=== PATIENT | female | born 1975 ===

== ENCOUNTER 2018-05-26 16:34 | Emergency (ER) | payer MEDICAID, OTHER ==
[2018-05-26 16:43] VITALS: TEMP 98.4
[2018-05-26] MEDS ORDERED: Sodium Chloride 0.9% 1,000 ML IV STA (16:55)
[2018-05-26 17:21] LABS: URINE APPEARANCE CLEAR (CLEAR); URINE BILIRUBIN NEGATIVE (NEGATIVE); URINE BLOOD SMALL (NEGATIVE); URINE COLOR YELLOW (YELLOW); URINE GLUCOSE (UA) NEGATIVE (NEGATIVE); URINE LEUKOCYTE ESTERASE NEGATIVE Leu/uL (NEGATIVE); URINE PROTEIN NEGATIVE mg/dL (<30 mg/dL); URINE UROBILINOGEN 0.2 E.U./dL (<1 E.U./dL)
[2018-05-26 17:25] LABS: BASO # 0.01 K/mm3 (0.0-2.0); BASO % 0.2 % (0.0-3.0); EOS # 0.1 (0.0-0.7); EOS % 1.5 % (1.5-5.0); GRAN # 4.6 (1.4-6.5); GRAN % 69.8 % (50.0-68.0); HEMOGLOBIN 13.6 g/dL (12.0-16.0); LYMPH # 1.5 (1.2-3.4); MEAN CELL VOLUME 97.1 fl (80.0-105.0); MEAN PLATELET VOLUME 9.9 fl (7.0-11.0); MONO # 0.4 (0.1-0.6); MONO % 6.5 % (1.0-6.0); RBC 4.12 10^6/uL (3.5-6.1); RED CELL DISTRIBUTION WIDTH 12.8 % (11.5-14.5); WHITE BLOOD COUNT 6.6 10^3/uL (4.5-11.0)
--- NOTE | 2018-05-26 17:31 | ED PDOC ---
Arrival/HPI - General Chief Complaint: Back Pain Time Seen by Provider: 05/26/18 16:37 Historian: Patient - History of Present Illness Narrative History of Present Illness (Text): 05/26/18 17:31 42yo female with pmhx of Asthma and anxiety who present with complaint of lower back pain x 5days. She describes pain as stabbing and intermittent. States she was taking Tylenol and Ibuprofen at home with temporary relieve. Reports that pain is with movement. Also complaint of dizziness x 3days. Notes that the dizziness improved today. Describes dizziness as spinning sensation. She denies focal weakness, urinary/fecal incontinence, fever, chills, abdominal pain, tinnitus, URI symptoms, chest pain, SOB, saddle anesthesia, any other complaint. Past Medical History - Infectious Disease Hx of Infectious Diseases: None - Cardiac Hx Cardiac Disorders: Yes Hx Hypotension: Yes - Pulmonary Hx Asthma: Yes Hx Bronchitis: Yes - Neurological Hx Neurological Disorder: No - HEENT Hx HEENT Disorder: No - Renal Hx Renal Disorder: No - Endocrine/Metabolic Hx Endocrine Disorders: No - Hematological/Oncological Hx Blood Disorders: No - Integumentary Hx Dermatological Disorder: No - Musculoskeletal/Rheumatological Hx Arthritis: Yes - Gastrointestinal Hx Gastritis: Yes - Genitourinary/Gynecological Hx Genitourinary Disorders: Yes (OVARIAN CYST FIBROID UTERUS) - Psychiatric Hx Anxiety: Yes (WHEN AWAKEENED FROM ANESTHESIA) Hx Substance Use: No - Surgical History Hx Hysterectomy: Yes - Anesthesia Hx Anesthesia: Yes Hx Anesthesia Reactions: Yes ( N/V, LOW B/P, PANIC ATTACKS) Hx Malignant Hyperthermia: No - Suicidal Assessment Feels Threatened In Home Enviroment: No Family/Social History - Physician Review Nursing Documentation Reviewed: Yes Family/Social History: Unknown Family HX Smoking Status: Light Smoker < 10 Cigarettes Daily Hx Alcohol Use: Yes Hx Substance Use: No Allergies/Home Meds Allergies/Adverse Reactions: Allergies tramadol Allergy (Severe, Verified 02/15/18 16:09) ANAPHYLAXIS Review of Systems - Physician Review All systems were reviewed & negative as marked: Yes - Review of Systems Constitutional: Normal Eyes: Normal ENT: Normal Respiratory: Normal Cardiovascular: Normal Gastrointestinal: Normal Genitourinary Female: Normal Musculoskeletal: Back Pain Skin: Normal Neurological: Dizziness. absent: Focal Weakness Endocrine: Normal Hemo/Lymphatic: Normal Psychiatric: Normal Physical Exam Vital Signs Reviewed: Yes Vital Signs Temp Pulse Resp BP Pulse Ox 12/08/18 16:34 98.4 F 85 18 111/71 99 Temperature: Afebrile Blood Pressure: Normal Pulse: Regular Respiratory Rate: Normal Appearance: Positive for: Well-Appearing, Non-Toxic, Comfortable Pain Distress: None Mental Status: Positive for: Alert and Oriented X 3 - Systems Exam Head: Present: Atraumatic, Normocephalic Pupils: Present: PERRL Extroacular Muscles: Present: EOMI Conjunctiva: Present: Normal Mouth: Present: Moist Mucous Membranes Neck: Present: Normal Range of Motion Respiratory/Chest: Present: Clear to Auscultation, Good Air Exchange. No: Respiratory Distress, Accessory Muscle Use Cardiovascular: Present: Regular Rate and Rhythm, Normal S1, S2. No: Murmurs Abdomen: No: Tenderness, Distention, Peritoneal Signs Back: Present: Paraspinal Tenderness (Diffuse paralumbar tenderness). No: Midline Tenderness, Pain with Leg Raise Upper Extremity: Present: Normal Inspection. No: Cyanosis, Edema Lower Extremity: Present: Normal Inspection. No: Edema Neurological: Present: GCS=15, CN II-XII Intact, Speech Normal, Motor Func Grossly Intact, Normal Sensory Function, Normal Cerebellar Funct, Gait Normal, Memory Normal, Normal 2Pt Descrimination, Other (No focal neurological deficit) Skin: Present: Warm, Dry, Normal Color. No: Rashes Psychiatric: Present: Alert, Oriented x 3, Normal Insight, Normal Concentration Medical Decision Making ED Course and Treatment: 05/26/18 19:06 PT in ED for stated history. She was ambulatory in ED and neurologically stable. LS Labs 1L NS, Meclizine, Toradol UA EKG Labs was unremarkable. LS xray - No acute finding EKG NSR @ 77bpm On re evaluation pt reports improvement of her symptoms Result was DW the pt and she was referred to ortho/[facility] ED for any new or worsening symptoms - Lab Interpretations Lab Results: 05/26/18 17:15 Lab Results 05/26/18 17:15: WBC 6.6, RBC 4.12, Hgb 13.6, Hct 40.0, MCV 97.1, MCH 33.0, MCHC 34.0, RDW 12.8, Plt Count 204, MPV 9.9, Gran % 69.8 H, Lymph % (Auto) 22.0, [place] % (Auto) 6.5 H, Eos % (Auto) 1.5, Baso % (Auto) 0.2, Gran # 4.60, Lymph # (Auto) 1.5, [place] # (Auto) 0.4, Eos # (Auto) 0.1, Baso # (Auto) 0.01 05/26/18 16:54: Urine Color Yellow, Urine Appearance Clear, Urine pH 6.0, Ur Specific [place] >= 1.030, Urine Protein Negative, Urine Glucose (UA) Negative, Urine Ketones Trace H, Urine Blood Small H, Urine Nitrate Negative, Urine Bi lirubin Negative, Urine Urobilinogen 0.2, Ur Leukocyte Esterase Negative, Urine RBC Pending, Urine WBC Pending - RAD Interpretation Radiology Orders: 05/26/18 16:50 LS SPINE WITH OBL > 18 YRS OLD [RAD] Stat - Medication Orders Current Medication Orders: Sodium Chloride (Sodium Chloride 0.9%) 1,000 mls @ 999 mls/hr IV .Q1H1M STA Stop: 05/26/18 17:55 Last Admin: 05/26/18 17:22 Dose: 999 mls/hr eMAR Start Stop Document 05/26/18 17:22 OCS (Rec: 05/26/18 17:23 [facility]-ER-20) Intravenous Solution Start Date 05/26/18 Start Time 17:23 End Date 05/26/18 End time 18:24 Total Infusion Time 61 Discontinued Medications Ketorolac Tromethamine (Toradol) 15 mg IVP STAT STA Stop: 05/26/18 17:17 Last Admin: 05/26/18 17:23 Dose: 15 mg MAR Pain Assessment Document 05/26/18 17:23 OCS (Rec: 05/26/18 17:23 [facility]-ER-20) Pain Reassessment Is this a pain reassessment? Yes Sleep Is patient sleeping during reassessment? No Presence of Pain Presence of Pain Yes Pain Scale Used Protocol: PSCALES Pain Scale Used Numeric Location Upper or Lower Lower Pain Location Body Site Back Description Description Constant Intensity of Pain at present 10 Pain Behavior Facial Grimacing Aggravating Factors ADL's IVP Administration Document 05/26/18 17:23 OCS (Rec: 05/26/18 17:23 OCS [facility] [place]-ER-20) Charges for Administration # of IVP Administrations 1 Disposition/Present on Arrival - Present on Arrival Any Indicators Present on Arrival: No History of DVT/PE: No History of Uncontrolled Diabetes: No Urinary Catheter: No History of Decub. Ulcer: No History Surgical Site Infection Following: None - Disposition Have Diagnosis and Disposition been Completed?: Yes Diagnosis: Back pain, Dizziness Disposition: HOME/ ROUTINE Disposition Time: 18:30 Patient Plan: Discharge Patient Problems: Current Active Problems Problem Status Onset Back pain Acute Dizziness Acute Condition: STABLE Discharge Instructions (ExitCare): Dizziness, Nonvertigo, (DC) Additional Instructions: Follow up with your Doctor/Orthopedist/Neurologist Return to ED for any new symptoms Prescriptions: Cyclobenzaprine [Cyclobenzaprine HCl] 10 mg PO BID #10 tab RX: Ibuprofen [Motrin Tab] 600 mg PO Q6 #20 tab RX: Meclizine [Meclizine*] 25 mg PO Q6 #12 tab Referrals: Justino Mohr III, MD [Medical Doctor] - Follow up with primary Jose Elias Samayoa DO [Primary Care Provider] - Follow up with primary Chau Richye MD [Staff Provider] - Follow up with primary Forms: [employer] (Hungarian), WORK NOTE
[2018-05-26 17:33] LABS: URINE WBC NEGATIVE /hpf (0-6)
[2018-05-26 17:34] LABS: INR 0.96; PARTIAL THROMBOPLASTIN TIME 31.1 Seconds (25.1-36.5); PROTHROMBIN TIME 10.9 SECONDS (9.4-12.5)
[2018-05-26 17:35] LABS: ALB/GLOB RATIO 1.5 (1.1-1.8); ALBUMIN 4.2 g/dL (3.0-4.8); ALT/SGPT 19 U/L (7-56); AST/SGOT 24 U/L (14-36); BLOOD UREA NITROGEN 14 mg/dL (7-21); GFR NON-AFRICAN AMERICAN > 60
[2018-05-26 17:53] LABS: TROPONIN I < 0.01 ng/mL
[2018-05-26 18:00] LABS: BARBITURATES, UR NEGATIVE (NEGATIVE); BENZODIAZEPINES, UR NEGATIVE (NEGATIVE); OPIATES, UR NEGATIVE (NEGATIVE); PHENCYCLIDINE, UR NEGATIVE (NEGATIVE)
[2018-05-26 18:41] VITALS: O2SAT 100
[2018-05-26 19:03] VITALS: BP 102/62; PULSE 67; RESP 17
--- NOTE | 2018-05-27 08:41 | CARD ---
APPROVED REPORT Date of service: 05/26/2018 EKG Measurement Heart [id number] <Conclusion> Normal sinus rhythm Normal ECG
--- NOTE | 2018-05-27 09:54 | RAD ---
Date of service: 05/26/2018 PROCEDURE: Radiographs of the Lumbar Spine. HISTORY: back pain COMPARISON: No prior. FINDINGS: BONES: Normal alignment. No listhesis. No fracture. DISC SPACES: Unremarkable. OTHER FINDINGS: None. IMPRESSION: Unremarkable radiographs of the lumbar spine.
== END 2018-05-26 18:55 | disposition home or self-care (01) ==
LOC: ED 16:34
DX: M54.9 Dorsalgia, unspecified (principal); R42 Dizziness and giddiness; J45.909 Unspecified asthma, uncomplicated; F17.210 Nicotine dependence, cigarettes, uncomplicated
CPT/HCPCS: 72110; 80053; 80324; 80345; 80346; 80349; 80353; 80358; 80361; 81001; 82550; 83615; 83735; 83992; 84484; 85025; 85610; 85730; 93005; 96361; 96374; 99283; J1885; J7030

== ENCOUNTER 2018-08-07 14:25 | Emergency (ER) | payer OTHER ==
[2018-08-07 14:41] VITALS: RESP 18; BMI 24.7
--- NOTE | 2018-08-07 14:59 | ED PDOC ---
Arrival/HPI - General Chief Complaint: Chest Pain Time Seen by Provider: 08/07/18 14:36 Historian: Patient - History of Present Illness Narrative History of Present Illness (Text): 08/07/18 14:36 Nicolette Rangel is a 42 year old female, with past medical history of asthma, anxiety, and chest pain, who presents to the Emergency department complaining of chest pain and shortness of breath secondary to asthma since last night. Patient states her inhaler does not improve symptoms. Patient denies fevers, headache, dizziness, dyspnea on exertion, abdominal pain, nausea, vomiting, diarrhea, back pain, neck pain, or any other complaint. Time/Duration: 24 hours Symptom Onset: Sudden Symptom Course: Unchanged Activities at Onset: Light Context: Home Past Medical History - Provider Review Nursing Documentation Reviewed: Yes - Infectious Disease Hx of Infectious Diseases: None - Reproductive Currently : Unknown - Cardiac Hx Cardiac Disorders: Yes Hx Hypotension: Yes - Pulmonary Hx Respiratory Disorders: Yes Hx Asthma: Yes Hx Bronchitis: Yes - Neurological Hx Neurological Disorder: No - HEENT Hx HEENT Disorder: No - Renal Hx Renal Disorder: No - Endocrine/Metabolic Hx Endocrine Disorders: No - Hematological/Oncological Hx Blood Disorders: No - Integumentary Hx Dermatological Disorder: No - Musculoskeletal/Rheumatological Hx Musculoskeletal Disorders: Yes Hx Arthritis: Yes - Gastrointestinal Hx Gastrointestinal Disorders: Yes Hx Gastritis: Yes - Genitourinary/Gynecological Hx Genitourinary Disorders: Yes (OVARIAN CYST FIBROID UTERUS) - Psychiatric Hx Psychophysiologic Disorder: Yes Hx Anxiety: Yes (WHEN AWAKEENED FROM ANESTHESIA) Hx Substance Use: No - Surgical History Hx Hysterectomy: Yes - Anesthesia Hx Anesthesia: Yes Hx Anesthesia Reactions: Yes ( N/V, LOW B/P, PANIC ATTACKS) Hx Malignant Hyperthermia: No - Suicidal Assessment Feels Threatened In Home Enviroment: No Family/Social History - Physician Review Nursing Documentation Reviewed: Yes Family/Social History: Unknown Family HX Smoking Status: Light Smoker < 10 Cigarettes Daily Hx Alcohol Use: Yes Hx Substance Use: No Allergies/Home Meds Allergies/Adverse Reactions: Allergies tramadol Allergy (Severe, Verified 02/15/18 16:09) ANAPHYLAXIS Review of Systems - Physician Review All systems were reviewed & negative as marked: Yes - Review of Systems Constitutional: Night Sweats. absent: Fevers Respiratory: SOB, Cough (dry cough). absent: Sputum Cardiovascular: Chest Pain Gastrointestinal: absent: Abdominal Pain, Diarrhea, Nausea, Vomiting Musculoskeletal: absent: Back Pain, Neck Pain Neurological: absent: Headache, Dizziness Physical Exam Vital Signs Reviewed: Yes Vital Signs Temp Pulse Resp BP Pulse Ox 08/07/18 14:41 98.0 F 92 H 18 109/69 98 Temperature: Afebrile Blood Pressure: Normal Pulse: Regular Respiratory Rate: Normal Appearance: Positive for: Well-Appearing, Non-Toxic, Comfortable Pain Distress: None Mental Status: Positive for: Alert and Oriented X 3 - Systems Exam Head: Present: Atraumatic, Normocephalic Pupils: Present: PERRL Extroacular Muscles: Present: EOMI Conjunctiva: Present: Normal Mouth: Present: Moist Mucous Membranes Neck: Present: Normal Range of Motion Respiratory/Chest: Present: Wheezes (scattered wheezing), Rhonchi. No: Respira tory Distress, Accessory Muscle Use Cardiovascular: Present: Regular Rate and Rhythm, Normal S1, S2. No: Murmurs Abdomen: No: Tenderness, Distention, Peritoneal Signs Back: Present: Normal Inspection Upper Extremity: Present: Normal Inspection. No: Cyanosis, Edema Lower Extremity: Present: Normal Inspection. No: Edema Neurological: Present: GCS=15, CN II-XII Intact, Speech Normal Skin: Present: Warm, Dry, Normal Color. No: Rashes Psychiatric: Present: Alert, Oriented x 3, Normal Insight, Normal Concentration, Anxious Medical Decision Making ED Course and Treatment: 08/07/18 14:36 Impression: Patient is a 42 year old female who presents to the emergency department with complaints of chest pain, shortness of breath, and asthma. Differential Diagnosis included but are not limited to: midl asthma exacerbation. cxr neg. perc neg. Plan: -- CXR -- Duoneb -- predniSONE -- Influenza A/B -- Reassess and disposition Prior Visits: Notes and results from previous visits were reviewed. Progress Notes: 08/07/18 14:36 Reviewed EKG, shows: NSR at [address] / T wave changes. 08/07/18 19:20 Chest X-Ray, shows: FINDINGS: LUNGS: No active pulmonary disease. PLEURA: No significant pleural effusion identified. No pneumothorax apparent. CARDIOVASCULAR: No aortic atherosclerotic calcification present. Normal cardiac size. No pulmonary vascular congestion. OSSEOUS STRUCTURES: No significant abnormalities. VISUALIZED UPPER ABDOMEN: Normal. OTHER FINDINGS: None. IMPRESSION: No active disease. 08/07/18 20:42 s/p neb ssteirods pt feeling better on phone i nad. asking for dc. ekg normal no cardiac type cp. no risk factor. - RAD Interpretation Radiology Orders: 08/07/18 14:53 CHEST TWO VIEWS (PA/LAT) [RAD] Stat - EKG Interpretation Interpreted by ED Physician: Yes Type: 12 lead EKG - Medication Orders Current Medication Orders: Albuterol/Ipratropium (Duoneb 3 Mg/0.5 Mg (3 Ml) Ud) 3 ml IH Q15M GRACIE Stop: 08/07/18 15:31 Prednisone (Prednisone Tab) 50 mg PO STAT STA Stop: 08/07/18 14:54 - Scribe Statement The provider has reviewed the documentation as recorded by the Scribe Isaias Juarez All medical record entries made by the Scribe were at my direction and personally dictated by me. I have reviewed the chart and agree that the record accurately reflects my personal performance of the history, physical exam, medical decision making, and the department course for this patient. I have also personally directed, reviewed, and agree with the discharge instructions and disposition. Disposition/Present on Arrival - Present on Arrival Any Indicators Present on Arrival: No History of DVT/PE: No History of Uncontrolled Diabetes: No Urinary Catheter: No History of Decub. Ulcer: No History Surgical Site Infection Following: None - Disposition Have Diagnosis and Disposition been Completed?: Yes Diagnosis: Asthma Disposition: HOME/ ROUTINE Disposition Time: 16:00 Condition: STABLE Discharge Instructions (ExitCare): Asthma in Adults Additional Instructions: return to any er with worsening symptoms or concerns. Prescriptions: Albuterol 0.083% [Albuterol 0.083% Inhal Fiona (2.5 mg/3 ml) UD] 2.5 mg IH Q4 PRN #20 neb PRN Reason: Wheezing Oseltamivir Phosphate [Tamiflu] 75 mg PO BID #10 capsule RX: Prednisone 50 mg PO DAILY #5 tablet Forms: [employer] (B[place]an), WORK NOTE
[2018-08-07] MEDS: Albuterol-Ipratrop 3 mg / 0.5 (3 ml) UD IH SCH ×3 (15:00→15:41)
[2018-08-07 16:39] VITALS: BP 109/64; PULSE 100; TEMP 99; O2SAT 96
--- NOTE | 2018-08-07 17:02 | RAD ---
Date of service: 08/07/2018 HISTORY: cough COMPARISON: No prior. TECHNIQUE: Chest PA and lateral FINDINGS: LUNGS: No active pulmonary disease. PLEURA: No significant pleural effusion identified. No pneumothorax apparent. CARDIOVASCULAR: No aortic atherosclerotic calcification present. Normal cardiac size. No pulmonary vascular congestion. OSSEOUS STRUCTURES: No significant abnormalities. VISUALIZED UPPER ABDOMEN: Normal. OTHER FINDINGS: None. IMPRESSION: No active disease.
--- NOTE | 2018-08-07 22:23 | CARD ---
APPROVED REPORT Date of service: 08/07/2018 EKG Measurement Heart [id number] <Conclusion> Normal sinus rhythm Normal ECG
== END 2018-08-07 16:39 | disposition home or self-care (01) ==
LOC: ED 14:25
DX: J45.909 Unspecified asthma, uncomplicated (principal); F17.210 Nicotine dependence, cigarettes, uncomplicated